=== PATIENT | female | born 1940 | race Caucasian/White ===

== ENCOUNTER → 2022-04-11 | Outpatient (CLI) | payer MEDICARE, OTHER | LOC: US 14:45 → CT 15:30 | DX: I65.23 Occlusion and stenosis of bilateral carotid arteries (principal); R41.0 Disorientation, unspecified | CPT/HCPCS: 70470; 93880 ==

== ENCOUNTER → 2022-04-17 | Outpatient (CLI) | payer MEDICARE, OTHER ==
[~2022-04-17] MED LIST: CRESTOR10 MG PO; DONEPEZIL HCL5 MG PO; LEVOTHYROXINE88 MCG PO; MAGNESIUM OXID400 M1 PO; METFORMIN HCL500 M2 PO; METOPROLOL TART25 MG PO; MULTIVITAMIN1 EACH PO
== END ==
LOC: NM 08:52
DX: M89.9 Disorder of bone, unspecified (principal); D49.59 Neoplasm of unspecified behavior of other genitourinary organ
CPT/HCPCS: 78306; A9503

== ENCOUNTER 2022-04-19 11:01 | Observation (INO) | payer MEDICARE, MEDICAID ==
[~2022-04-19] VITALS: Ht 149.9 cm; Wt 73.9 kg
[2022-04-19 11:42] LABS: HEMOGLOBIN 10.6 gm/dl (12.3-15.3); RED BLOOD COUNT 3.71 M/UL (4.00-5.10); WHITE BLOOD COUNT 6.5 K/UL (4.5-11.0)
[2022-04-19 12:07] LABS: BUN/CREATININE RATIO 22 (0-10)
[2022-04-19] MEDS ORDERED: LEVOTHYROXINE88 MCG PO (15:36)
[2022-04-19] MEDS ORDERED: METFORMIN HCL500 M2 PO (15:36)
[2022-04-19] MEDS ORDERED: DONEPEZIL HCL5 MG PO (15:36)
[2022-04-19] MEDS ORDERED: METOPROLOL TART25 MG PO (15:37)
[2022-04-19] MEDS ORDERED: CRESTOR10 MG PO (15:38)
[2022-04-19] MEDS ORDERED: MULTIVITAMIN1 EACH PO (15:38)
[2022-04-20 02:14] LABS: HEMOGLOBIN 9.4 gm/dl (12.3-15.3); WHITE BLOOD COUNT 4.9 K/UL (4.5-11.0)
[2022-04-20 02:15] LABS: RED BLOOD COUNT 3.28 M/UL (4.00-5.10)
[2022-04-20 02:32] LABS: BUN/CREATININE RATIO 19 (0-10)
[2022-04-20] MEDS ORDERED: MAGNESIUM OXID400 M1 PO (10:34)
== END 2022-04-20 14:11 | disposition home or self-care (01) ==
LOC: ER1 11:01 → M/S 14:49 → CDU 14:49 → M/S 16:38
PROVIDERS: Nurse Practitioner; Physician Assistant; ADMIT Internal Medicine
DX: G93.40 Encephalopathy, unspecified (principal); F03.90 Unspecified dementia, unspecified severity, without behavioral disturbance, psychotic disturbance, mood disturbance, and anxiety; C51.9 Malignant neoplasm of vulva, unspecified; E86.0 Dehydration; E83.42 Hypomagnesemia; R79.89 Other specified abnormal findings of blood chemistry; E03.9 Hypothyroidism, unspecified; E78.5 Hyperlipidemia, unspecified; I10 Essential (primary) hypertension; E87.1 Hypo-osmolality and hyponatremia; E88.09 Other disorders of plasma-protein metabolism, not elsewhere classified; R73.03 Prediabetes; Z20.822 Contact with and (suspected) exposure to COVID-19; Z87.891 Personal history of nicotine dependence; Z95.2 Presence of prosthetic heart valve; Z96.653 Presence of artificial knee joint, bilateral; Z79.84 Long term (current) use of oral hypoglycemic drugs; Z79.890 Hormone replacement therapy; Z79.899 Other long term (current) drug therapy
CPT/HCPCS: ECHO; 0240U; 70450; 71045; 80053; 80307; 81001; 82140; 82550; 82553; 82607; 83605; 83735; 84439; 84443; 84484; 85025; 87040; 87086; 93005; 93306; 96360; 96361; 99285; G0378